=== PATIENT | female | born 1960 | race African-American/Black ===

== ENCOUNTER → 2024-01-14 | Day surgery (SDC) | payer MEDICAID ==
[~2024-01-14] VITALS: Ht 160 cm; Wt 77.1 kg
[~2024-01-14] MED LIST: ACYC200C31 PO; ALBU18HF2 IH; AMLO10TA80 PO; ATOR20TA65 PO; BUDE6HFA IH; BUPIVACAINE HCL/PF 0.5% (5MG/ML) 10ML ONE; BUPR300T52 PO; CEFAZOLIN SODIUM 1000MG/VIAL ONE; CHOL200026 PO; CYCL10TA21 PO; DEXAMETHASONE 4MG/ML 1ML VIAL ONE; FENTANYL CITRATE/PF 50MCG/ML 2ML VIAL ONE; FLUO20CA33 PO; GLYCOPYRROLATE 0.2 MG/ML 2ML VIAL ONE; HYDROMORPHONE HCL/PF 1MG/ML INJ ONE; LABETALOL 5MG/ML 4ML INJ IV PRN; MEPERIDINE HCL/PF 25MG/ML CPJ IV PRN; MIDAZOLAM HCL 2 MG/2 ML VIAL ONE; NEOSTIGMINE METHYLSULFATE 1MG/ML 10 ML VIAL ONE; ONDANSETRON HCL 4MG/2ML INJ IV PRN; ROCURONIUM BROMIDE 10MG/ML VIAL 5ML IV ONE; SKIN ADHESIVE 0.7 GM EA TOP ONE; SUCCINYLCHOLINE CHLORIDE 200MG/10ML IV ONE; SUGAMMADEX SODIUM 200MG/2ML VIAL IV ONE; TRAZ-251 PO
[2024-01-14] MEDS: LACTATED RINGERS 1,000 ML IV SCH (07:48)
[2024-01-14] MEDS: HYDROMORPHONE HCL/PF 1MG/ML INJ IV PRN (09:46)
[2024-01-14 09:53] VITALS: BP 153/70; PULSE 48; RESP 15
== END | disposition home or self-care (01) ==
LOC: OR 06:24
PROVIDERS: ATTEND Surgery
DX: K80.10 Calculus of gallbladder with chronic cholecystitis without obstruction (principal); I10 Essential (primary) hypertension; E78.5 Hyperlipidemia, unspecified; J45.909 Unspecified asthma, uncomplicated; Z79.899 Other long term (current) drug therapy; Z90.710 Acquired absence of both cervix and uterus; Z98.890 Other specified postprocedural states
CPT/HCPCS: 47562; 88304; J3010; J3490 ×3; J0690; J1100; J2250; J0330; J1170; J7030; J2710